=== PATIENT | male | born 1975 | race African-American/Black ===

== ENCOUNTER 2019-07-02 19:42 | Emergency (ER) | payer MEDICAID, OTHER ==
[~2019-07-02] VITALS: Ht 177.8 cm; Wt 91.2 kg
[2019-07-02 20:05] VITALS: BP 137/82
[2019-07-02] MEDS ORDERED: IBUPROFEN 600 MG TABLET PO ONE ×2 (20:46→21:00)
[2019-07-02] MEDS ORDERED: predniSONE 20 MG TABLET ONE (20:47)
--- NOTE | 2019-07-02 20:50 | NUR ---
RT CALLED RE: BREATHING TX.
[2019-07-02] MEDS ORDERED: ALBUTEROL FS 2.5 MG/3 ML VIAL.NEB ONE (20:52)
[2019-07-02] MEDS ORDERED: IPRATROPIUM NEB FS 0.5 MG/2.5 ML AMPUL.NEB ONE (20:52)
[2019-07-02] MEDS ORDERED: predniSONE 20 MG TABLET PO ONE (21:00)
[2019-07-02] MEDS ORDERED: ALBUTEROL FS 2.5 MG/3 ML VIAL.NEB NEB ONE (21:00)
[2019-07-02] MEDS ORDERED: IPRATROPIUM NEB FS 0.5 MG/2.5 ML AMPUL.NEB NEB ONE (21:00)
--- NOTE | 2019-07-02 21:45 | NUR ---
Patient discharged to home in stable condition. Written and verbal after care instructions given. Patient verbalizes understanding of instruction and Rx. Pt ambulated out with a steady gait. VSS. NAD noted. Resp even and unlabored.
== END 2019-07-02 21:47 | disposition home or self-care (01) ==
LOC: ER 19:46
DX: J06.9 Acute upper respiratory infection, unspecified (principal); J98.01 Acute bronchospasm
CPT/HCPCS: 71045; 94640; 99283; J7512